=== PATIENT | female | born 1990 | race Hispanic/Latino ===

== ENCOUNTER 2017-08-17 22:08 | Inpatient (IN) | payer MEDICAID ==
[~2017-08-17] VITALS: Ht 165.1 cm; Wt 85.7 kg
[2017-08-17] MEDS ORDERED: LACTATED RINGERS 1000ML 1,000 ML IV PRN (22:50)
[2017-08-17] MEDS ORDERED: EPHEDRINE SULFATE 50 MG/ML AMPULE IVP PRN (23:00)
[2017-08-17] MEDS ORDERED: PROMETHAZINE HCL 25 MG/ML 1ML AMPULE IM PRN (23:00)
[2017-08-17] MEDS ORDERED: ROPIVACAINE 0.2%200ML EPIDURAL 200 ML EP PRN (23:00)
[2017-08-17] MEDS ORDERED: MEPERIDINE-PF 50 MG/ML SYG IVP PRN (23:00)
[2017-08-17] MEDS ORDERED: AMPICILLIN 2GM+NS 100ML 100 ML IV SCH (23:00)
[2017-08-17] MEDS ORDERED: LACTATED RINGERS 500 ML 500 ML IV PRN (23:00)
[2017-08-17] MEDS ORDERED: NALOXONE HCL 0.4 MG/1 ML ML IV PRN (23:00)
[2017-08-17 23:15] LABS: APPEARANCE,URINE Clear (CLEAR); BILIRUBIN,URINE Negative (NEGATIVE); COLOR,URINE Yellow (YELLOW); GLUCOSE, URINE (UA) Negative (NEGATIVE); KETONES,URINE 15 mg/dL (NEGATIVE); LEUKOCYTE ESTERASE ,URINE Large (NEGATIVE); NITRATE,URINE Negative (NEGATIVE); OCCULT BLOOD,URINE Small (NEGATIVE); PROTEIN,URINE Negative (NEGATIVE)
[2017-08-17 23:37] LABS: BACTERIA,URINE Moderate /HPF (None Seen)
[2017-08-17 23:38] LABS: AMORPHOUS SEDIMENT,UR Few /LPF (None Seen); MUCUS,URINE Moderate LPF (None Seen); SQUAMOUS EPITHELIAL CELL,UR Moderate /LPF (0-2)
[2017-08-17 23:54] LABS: HEMATOCRIT 32.2 % (36-48); MEAN CORPUSCULAR HEMOGLOBIN 29.2 pg (27.0-33.0); MEAN CORPUSCULAR HGB CONC 33.1 g/dL (32.0-36.0); MEAN CORPUSCULAR VOLUME 88.3 fL (79-99); PLATELET COUNT (AUTO) 334 K/uL (130-400); RED BLOOD CELL COUNT(AUTO) 3.65 MIL/uL (4.00-5.50); RED CELL DISTRIBUTION WIDTH 12.4 % (11.0-15.5)
[2017-08-17] MEDS ORDERED: LACTATED RINGERS 1000ML 1,000 ML IV ONE (23:59)
[2017-08-17] MEDS ORDERED: AMPICILLIN 2GM+NS 100ML 100 ML IV ONE (23:59)
[2017-08-18] MEDS: AMPICILLIN 1GM+NS 50ML 50 ML IV SCH ×3 (03:00→15:00)
[2017-08-18] MEDS ORDERED: OXYTOCIN 10 USP UNITS/ML ONE ×2 (04:47→10:27)
[2017-08-18] MEDS ORDERED: LACTATED RINGERS 1000ML 1,000 ML IV ONE (04:47)
[2017-08-18] MEDS ORDERED: OXYTOCIN 10 USP UNITS/ML 20 UNIT in LACTATED RINGERS 1000ML 1,000 ML IV SCH (05:00)
[2017-08-18] MEDS ORDERED: LIDOCAINE HCL 1% 20 ML VIAL ONE (09:14)
[2017-08-18] MEDS ORDERED: METHYLERGONOVINE MALEATE 0.2 MG/1 ML ML ONE (09:15)
[2017-08-18] MEDS ORDERED: MISOPROSTOL 200 MCG TABLET ONE (09:16)
[2017-08-18] MEDS ORDERED: BENZOCAINE/LANOLIN/ALOE VERA 60 ML AEROSOL TP PRN (10:15)
[2017-08-18] MEDS ORDERED: MEASLES/MUMPS/RUBELLA VACCINE, LIVE 0.5 ML/VIAL SQ PRN (10:15)
[2017-08-18] MEDS ORDERED: ACETAMINOPHEN 325 MG TAB PO PRN (10:15)
[2017-08-18] MEDS: OXYTOCIN-LR 20 UNITS/1000 ML 1,000 ML IV SCH (10:15)
[2017-08-18] MEDS ORDERED: WITCH HAZEL 1 PAD TP PRN (10:15)
[2017-08-18] MEDS ORDERED: DIPH,PERTUSS(ACELL),TET VAC/PF 0.5 ML VIAL IM PRN (10:15)
[2017-08-18] MEDS ORDERED: LANOLIN 30GM OINTMENT TP PRN (10:15)
[2017-08-18] MEDS ORDERED: ACETAMINOPHEN-CODEINE 300/30MG TAB PO PRN (10:15)
[2017-08-18 11:49] VITALS: BP 115/67
[2017-08-18] MEDS ORDERED: PNV1TABL17 PO (13:21)
[2017-08-18 16:28] VITALS: BP 114/67
[2017-08-18 19:30] VITALS: BP 126/56
[2017-08-18] MEDS: DOCUSATE SODIUM 100 MG CAP PO SCH (21:13)
[2017-08-18 23:11] VITALS: BP 94/49
[2017-08-19] MEDS: IBUPROFEN 800 MG TAB PO PRN ×2 (01:40→17:55)
[2017-08-19 03:20] VITALS: BP 104/62
[2017-08-19 06:47] LABS: HEMATOCRIT 25.2 % (36-48); MEAN CORPUSCULAR HEMOGLOBIN 28.6 pg (27.0-33.0); MEAN CORPUSCULAR VOLUME 86.5 fL (79-99); PLATELET COUNT (AUTO) 274 K/uL (130-400); RED BLOOD CELL COUNT(AUTO) 2.91 MIL/uL (4.00-5.50); RED CELL DISTRIBUTION WIDTH 12.6 % (11.0-15.5); WHITE BLOOD COUNT (AUTO) 13.1 K/uL (4.8-10.8)
[2017-08-19 07:30] LABS: HEPATITIS Bs ANTIGEN SCREEN P Negative (Negative)
[2017-08-19 07:55] VITALS: BP 94/50
[2017-08-19] MEDS: DOCUSATE SODIUM 100 MG CAP PO SCH ×2 (08:44→21:04)
[2017-08-19] MEDS: OXYTOCIN-LR 20 UNITS/1000 ML 1,000 ML IV SCH (10:15)
[2017-08-19 11:36] VITALS: BP 106/50
[2017-08-19] MEDS: AMPICILLIN 1GM+NS 50ML 50 ML IV SCH ×5 (15:00→23:44)
[2017-08-19 15:32] VITALS: BP 101/61
[2017-08-19 19:30] VITALS: BP 119/53
[2017-08-19 23:16] VITALS: BP 118/56
[2017-08-20 03:21] VITALS: BP 97/64
[2017-08-20 07:29] VITALS: BP 94/61
[2017-08-20] MEDS: DOCUSATE SODIUM 100 MG CAP PO SCH (08:25)
[2017-08-20] MEDS: IBUPROFEN 800 MG TAB PO PRN (08:26)
[2017-08-20 11:29] VITALS: BP 135/71
== END 2017-08-20 14:40 | disposition home or self-care (01) | DRG 560 ==
LOC: WSH 22:08 → LDH 08-18 05:00 → WSH 08-18 11:53 → EDSTATUS 09-03 22:06
PROVIDERS: ADMIT Obstetrics & Gynecology; ATTEND Obstetrics & Gynecology
PROC: 0KQM0ZZ Repair Perineum Muscle, Open Approach (ICD-10-PCS; principal; 2017-08-18)
PROC: 10E0XZZ Delivery of Products of Conception, External Approach (ICD-10-PCS; 2017-08-18)
PROC: 10907ZC Drainage of Amniotic Fluid, Therapeutic from Products of Conception, Via Natural or Artificial Opening (ICD-10-PCS; 2017-08-18)
PROC: 3E0234Z Introduction of Serum, Toxoid and Vaccine into Muscle, Percutaneous Approach (ICD-10-PCS; 2017-08-18)
DX: O69.81X0 Labor and delivery complicated by cord around neck, without compression, not applicable or unspecified (principal); O70.1 Second degree perineal laceration during delivery; Z37.0 Single live birth; Z3A.37 37 weeks gestation of pregnancy; O99.824 Streptococcus B carrier state complicating childbirth; Z23 Encounter for immunization
CPT/HCPCS: 36415; 81001; 85027; 86592; 86850; 86900; 86901; 87340; 90715; A4351; A4606; J0290; J2175; J2210; J2550; J2590; J7120

== ENCOUNTER 2018-12-06 20:06 | Emergency (ER) | payer MEDICAID, OTHER ==
[~2018-12-06 20:06] MED LIST: PNV1TABL17 PO
[2018-12-06] MEDS ORDERED: FAMOTIDINE 20MG TAB 20 MG TAB ONE (20:45)
[2018-12-06] MEDS ORDERED: DEXAMETHASONE SOD PHOSPHATE 10MG/ML 1ML VIAL ONE (20:45)
[2018-12-06] MEDS ORDERED: DIPHENHYDRAMINE HCL 25 MG CAPSULE ONE (20:45)
== END 2018-12-06 21:25 | disposition home or self-care (01) ==
LOC: EDH 20:06
DX: T78.49XA Other allergy, initial encounter (principal); X58.XXXA Exposure to other specified factors, initial encounter
CPT/HCPCS: 96372; 99283; J1100; Q0163